=== PATIENT | female | born 1950 | race Caucasian/White ===

== ENCOUNTER → 2017-02-24 | Outpatient (CLI) | payer BC | LOC: MC.RAD 15:40 | DX: Z12.31 Encounter for screening mammogram for malignant neoplasm of breast (principal) ==

== ENCOUNTER → 2018-05-26 | Outpatient (CLI) | payer BC | LOC: MC.RAD 08:29 | DX: Z12.31 Encounter for screening mammogram for malignant neoplasm of breast (principal) ==

== ENCOUNTER → 2019-07-25 | Outpatient (CLI) | payer BC | LOC: MC.RAD 16:52 | DX: Z12.31 Encounter for screening mammogram for malignant neoplasm of breast (principal) ==

== ENCOUNTER 2023-01-18 14:45 | Observation (INO) | payer MEDICARE, OTHER ==
[~2023-01-18] VITALS: Ht 160 cm; Wt 45.2 kg
[~2023-01-18 14:45] MED LIST: DITROPAN XL 5MG5 M1 PO; DOXYCYCLINE 10100 MG PO; SYNTHROID0.075 MG/T PO
[2023-01-18 15:31] LABS: BASO % 0.4 % (0.0-2.0); EOS # 0.1 K/mm3 (0.0-0.7); EOS % 1.8 % (0.0-4.0); GRAN # 4.1 K/mm3 (1.4-6.5); GRAN % 73.1 % (42.2-75.2); HEMATOCRIT 39.4 % (37.0-47.0); HEMOGLOBIN 12.7 g/dl (12.5-16.0); LYMPH # 0.9 K/mm3 (1.2-3.4); LYMPH % 16.3 % (20.0-51.0); MEAN CELL VOLUME 92 fl (80.0-100.0); MEAN CORPUSCULAR HEMOGLOBIN 30 pg (27-31); MEAN CORPUSCULAR HGB CONC 32 g/dl (33.0-37.0); MEAN PLATELET VOLUME 11.2 fl (7.4-10.4); MONO # 0.5 K/mm3 (0.1-0.6); MONO % 8.2 % (1.7-9.3); PLATELET COUNT 215 K/mm3 (130-400); REDCELL DISTRIBUTION WIDTH-CV 13.1 % (11.5-14.5)
[2023-01-18 15:39] LABS: LACTIC ACID 0.9 mmol/L (0.5-2.0)
[2023-01-18 15:46] LABS: ALBUMIN 4.1 gm/dL (3.4-4.8); BILIRUBIN,TOTAL 0.3 mg/dL (0.2-1.2); CREATININE, serum 1.09 mg/dL (0.57-1.11); POTASSIUM 4.5 mmol/L (3.5-4.5); TOTAL PROTEIN 7.7 gm/dL (6.2-8.1)
[2023-01-18 16:06] LABS: THYROID STIMULATING HORMONE 4.448 uIU/mL (0.350-4.940); TROPONIN-I 0.01 ng/mL (0.00-0.033)
[2023-01-18 16:53] LABS: COLLECTION METHOD CATHETER
[2023-01-18 17:06] LABS: URINE APPEARANCE Clear (CLEAR/HAZY); URINE BLOOD Negative (NEGATIVE); URINE COLOR Yellow (YELLOW); URINE GLUCOSE Negative (NEGATIVE); URINE KETONE Negative (NEGATIVE); URINE NITRATE Negative (NEGATIVE); URINE PROTEIN(semi-quant) Negative (NEGATIVE); URINE UROBILINOGEN 0.2 E.U/dL (0.2-1.0)
[2023-01-18 18:26] LABS: TRICYCLIC ANTIDEPRESS URINE NEGATIVE
--- NOTE | 2023-01-18 19:43 | NUR ---
Patient arrived to the unit at this time with belongins in bag and jewlery put in container with patietn label. Jewlery includes two rings and one set of earings. Patient is alert but very drowsy. Patient is able to say her name but does not say anything when asked her , location, or what year it is. IV in left forearm appears clean, dry, intact and flushes easily with no complications. Patient on tele, sinus nicolasa. Water given. Denies any other needs at this time. Med rec unable to be completed due to patient confusion and reported that family doesn't know what she takes or how much. Patient intake partially completed due to patient confusion and family not present. Assessment complete. Unable to orient patient due to cofusion and very drowsy. Call light and personal items in reach. Bed in low position and bed alarm on. Yellow gown, footwear, and wrist band applied.
[2023-01-18 19:47] VITALS: BP 171/98; PULSE 93; TEMP 98.4
[2023-01-18 21:22] VITALS: BP_SYST 171
[2023-01-18 23:30] VITALS: BP 118/75; PULSE 59; TEMP 97.6
[2023-01-19] VITALS (12 sets, daily range): BP systolic 94–144; BP diastolic 58–82; PULSE 61–85; TEMP 97.5–98.2
[2023-01-19 00:05] LABS: SQUAMOUS EPITHELIAL 0-2 /hpf (0-10); URINE RBC None Seen /hpf (0-2)
--- NOTE | 2023-01-19 03:00 | NUR ---
Patient yelling "Help me! Someone please help me." and trying to get out of bed. Upon entry of room patient states "All these people have to pee. Help them and I'll feel better." when asked if she has to pee, patient declines. Patient is very confused at this time. Hospitalist Branden contacted and recieved new orders recieved, orders read back and verified.
--- NOTE | 2023-01-19 03:25 | NUR ---
Patient yelling for help and attempting to get out of bed. When asking patient what she needs help with she states "Those people standing over there in the corner need to pee. Help them and I will be able to go back to sleep." when asking patient if she is hearing voices she states "sometimes" and when asked if she sees anyone other than this nurse patient states "no". Medication administered and patient reassured there is nobody in her room.
--- NOTE | 2023-01-19 03:30 | NUR ---
Patient is alert and Oriented x3 at this time. Patient is oriented to herself and location, unaware of time.
[2023-01-19 06:44] LABS: HEMOGLOBIN 10.8 g/dl (12.5-16.0); MEAN CELL VOLUME 88 fl (80.0-100.0); MEAN CORPUSCULAR HEMOGLOBIN 30 pg (27-31); MEAN CORPUSCULAR HGB CONC 34 g/dl (33.0-37.0); MEAN PLATELET VOLUME 11.1 fl (7.4-10.4); PLATELET COUNT 164 K/mm3 (130-400); RED BLOOD COUNT 3.65 M/mm3 (4.10-5.30); REDCELL DISTRIBUTION WIDTH-CV 12.8 % (11.5-14.5)
[2023-01-19 07:08] LABS: CHOLESTEROL RISK RATIO 4.6
--- NOTE | 2023-01-19 09:07 | NUR ---
Pt is resting in bed, awake but with eyes closed. Alert and oriented to self and place. Getting LR per orders, asked for tylenol for headache, provided, Telemetry in place, SR. Assessment completed, meds provided, no further needs at this time. Call light within reach.
[2023-01-19] MEDS ORDERED: ARICEPT 5MG PO (09:37)
[2023-01-19] MEDS ORDERED: K-DUR 10 MEQ T10 MEQ PO (09:38)
[2023-01-19] MEDS ORDERED: LASIX 20MG TABL20 MG PO (09:38)
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
--- NOTE | 2023-01-19 18:55 | NUR ---
in bed pulling off telemetry leads, DIRECTOR OF CREATIVE SERVICES in and assisting her, bedside shift report received from TALON Childress
--- NOTE | 2023-01-19 19:30 | NUR ---
resting in bed wanting to get up to go to work, attempted to reorient, is oriented to self but nothing else, full assessment completed, see interventions for further info, medicated with tylenol 650mg po for general discomfort, lights out and encouraged her to sleep
--- NOTE | 2023-01-19 21:00 | NUR ---
appears to be sleeping, in bed with lights off, eyes closed, yang quiet and easy
--- NOTE | 2023-01-19 21:50 | NUR ---
talking about water on the floor, reoriented her and encouraged her to go back to sleep, she is in agreement with this
--- NOTE | 2023-01-19 22:13 | NUR ---
moving about in bed, had been incontinent of urine and care provided, encouraged to sleep
--- NOTE | 2023-01-19 23:07 | NUR ---
attempting to get out of bed, entered room and patient stated she needed to go to the bathroom, assisted out of bed and she ambulated to the bathroom and voided qs, then back to bed and she was encouraged to sleep
[2023-01-20] VITALS (8 sets, daily range): BP systolic 121–167; BP diastolic 70–93; PULSE 67–92; TEMP 97.7–98.1
--- NOTE | 2023-01-20 00:51 | NUR ---
at this time she appears to be sleeping, in bed with eyes closed, resp quiet and easy
--- NOTE | 2023-01-20 01:00 | NUR ---
again asking to get up and go to bathroom, was able to void qs and also had BM, then assisted back to bed
--- NOTE | 2023-01-20 01:35 | NUR ---
is now asking for a cinammon roll, explained to her we didn't have any and she asked for just something sweet to eat, provided matt guzman and she was pleased with that
--- NOTE | 2023-01-20 01:42 | NUR ---
and she is now having ice cream per her request
--- NOTE | 2023-01-20 02:25 | NUR ---
appears to be sleeping now after having had ice cream
--- NOTE | 2023-01-20 05:44 | NUR ---
assisted up to bathroom and voids qs, has slept off and on during the night and remains confused to time and place
--- NOTE | 2023-01-20 06:57 | NUR ---
bedside shift report given to TALON Galvin
--- NOTE | 2023-01-20 07:50 | NUR ---
pt alert and oriented, w occasional confusion. pt resting in bed, assisted to recliner for breakfast. pt denies pain. vss and tele in place. meds given and assessment complete. left wrist INT is patent. fall precautions in place. no needs at this time. call light in reach.
--- NOTE | 2023-01-20 16:30 | NUR ---
INT discontinued. discharge instructions given to pt and family. phone numbers for medicaid and anabela SW given to family. escorted by wheelchair to personal vehicle.
--- NOTE | 2023-01-20 16:36 | NUR ---
Anesthesiology Resident spoke with Hospitalist who advised patient is ready for discharge today and wants to return home. Patient was unsure about Home Health services. GASTON contacted AMARJIT George Anesthesiology Resident who advised she has had an open case for patient. Cassidy reported that patient's family has been resistant to placement and have not completed a Medicaid application. GASTON made additional report to APS, intake #[id number]. GASTON contacted Zack Financial Counselor who plans to be in contact with family to complete Medicaid application. GASTON contacted patient's , Carlos by phone to discuss discharge. SW advised that patient was medically cleared for discharge and that she would not qualify for SNF at this time. SW stressed the importance of completing a Medicaid application in order to begin the process of getting patient into LTC or memory care. Carlos verbalized understanding. GASTON discussed Home Health services with Carlos who is agreeable to this. GASTON reviewed options for HH and Carlos selected [facility]. GASTON contacted Julian at [facility] and faxed referral with discharge orders. Julian advised they will accept at this time. GASTON contacted patient's son, Ra to review the above update. GASTON again stressed the importance of follow up with the Medicaid application as the payer source for LTC. Ra verbalized understanding and stated he could quill picking machine operator patient around 1700. Around 1600, patient's Carlos and other son, Ilya arrived to quill picking machine operator patient. Carlos stated patient was not ready to return back home and they cannot care for her. GASTON attempted to discuss Dr. Sultana's recommendation for LTC, but Carlos denied any knowledge of this. Carlos stated he has never had any contact with Dr. Sultana's office. GASTON attempted to discuss patient's level of functioning before hospitalization and Carlos avoided answering this question. GASTON asked Carlos how they managed at home prior to hospitalization and he stated patient was "much better" than she is now. Carlos stated it's "bullshit" that she is being discharged. GASTON had Hospitalist come speak with Carlos and he again was not receptive to answers being provided. Carlos requested Hospitalist leave room and on the way out, Carlos stated to Hospitalist he would "kick his ass". SW also left room at this point. Discharge Plan: Home with HH
== END 2023-01-20 16:30 | disposition home or self-care (01) ==
LOC: COL.ER 14:45 → EDBD 14:46 → MEDICAL 18:37 → EDBEDREQ 19:18 → MEDICAL 01-20 16:30
PROVIDERS: Emergency Medicine; Physician Assistant; ADMIT Hospitalist
DX: R41.82 Altered mental status, unspecified (principal); E86.0 Dehydration; R41.0 Disorientation, unspecified; E03.9 Hypothyroidism, unspecified; Z79.890 Hormone replacement therapy; F03.90 Unspecified dementia, unspecified severity, without behavioral disturbance, psychotic disturbance, mood disturbance, and anxiety; Z79.899 Other long term (current) drug therapy
CPT/HCPCS: G0378; J1650; J7120

== ENCOUNTER 2023-01-27 02:58 | Inpatient (IN) | payer MEDICARE, OTHER ==
[2023-01-27] VITALS (8 sets, daily range): BP systolic 107–173; BP diastolic 68–102; PULSE 68–85; TEMP 97.3–97.8
[~2023-01-27] VITALS: Ht 162.6 cm; Wt 66.2 kg
[~2023-01-27 02:58] MED LIST changes: +ARICEPT 5MG PO; +K-DUR 10 MEQ T10 MEQ PO; +LASIX 20MG TABL20 MG PO
[2023-01-27 04:05] LABS: BASO % 0.6 % (0.0-2.0); EOS # 0.3 K/mm3 (0.0-0.7); EOS % 3.7 % (0.0-4.0); GRAN # 5.2 K/mm3 (1.4-6.5); GRAN % 73.5 % (42.2-75.2); LYMPH # 0.9 K/mm3 (1.2-3.4); LYMPH % 13.1 % (20.0-51.0); MEAN CELL VOLUME 97 fl (80.0-100.0); MEAN CORPUSCULAR HEMOGLOBIN 29 pg (27-31); MEAN CORPUSCULAR HGB CONC 30 g/dl (33.0-37.0); MEAN PLATELET VOLUME 11.3 fl (7.4-10.4); MONO # 0.6 K/mm3 (0.1-0.6); MONO % 8.7 % (1.7-9.3); PLATELET COUNT 201 K/mm3 (130-400); RED BLOOD COUNT 3.77 M/mm3 (4.10-5.30); REDCELL DISTRIBUTION WIDTH-CV 13.6 % (11.5-14.5)
[2023-01-27 04:14] LABS: HEMATOCRIT 36.5 % (37.0-47.0)
[2023-01-27 04:25] LABS: ALANINE AMINOTRANSFERASE 45 U/L (0-55); ALBUMIN 3.6 gm/dL (3.4-4.8); ALKALINE PHOSPHATASE 82 U/L (40-150); ANION GAP 10 mmol/L (7-16); AST,SGOT 41 U/L (5-34); BILIRUBIN,TOTAL 0.2 mg/dL (0.2-1.2); BLOOD UREA NITROGEN 26 mg/dL (10-20); C-REACTIVE PROTEIN 0.15 mg/dL (0.00-0.50); CALCIUM 9.3 mg/dL (8.4-10.2); CARBON DIOXIDE 27 mmol/L (23-31); CHLORIDE 105 mmol/L (98-107); CREATININE, serum 0.92 mg/dL (0.57-1.11); GLUCOSE 111 mg/dL (70-99); MAGNESIUM 2.1 mg/dL (1.6-2.6); POTASSIUM 4.5 mmol/L (3.5-4.5); SODIUM 142 mmol/L (136-145); TOTAL PROTEIN 7.4 gm/dL (6.2-8.1)
[2023-01-27 04:46] LABS: THYROID STIMULATING HORMONE 5.009 uIU/mL (0.350-4.940)
[2023-01-27 04:49] LABS: TROPONIN-I < 0.010 ng/mL (0.00-0.033)
[2023-01-27 07:40] LABS: COLLECTION METHOD CLEAN CATCH
[2023-01-27 07:57] LABS: URINE APPEARANCE Clear (CLEAR/HAZY); URINE BLOOD Negative (NEGATIVE); URINE COLOR Yellow (YELLOW); URINE GLUCOSE Negative (NEGATIVE); URINE KETONE Negative (NEGATIVE); URINE NITRATE Negative (NEGATIVE); URINE PROTEIN(semi-quant) Negative (NEGATIVE); URINE UROBILINOGEN 0.2 E.U/dL (0.2-1.0)
[2023-01-27 08:00] LABS: SQUAMOUS EPITHELIAL 0-2 /hpf (0-10); URINE RBC None Seen /hpf (0-2)
[2023-01-27] MEDS ORDERED: K-DUR 10 MEQ T10 MEQ PO (09:05)
[2023-01-27] MEDS ORDERED: LASIX 20MG TABL20 MG PO (09:06)
--- NOTE | 2023-01-27 13:30 | NUR ---
Patient arrived to room 354 at approximately 0830 with diagnosis of BLE edema. Pt able to answer all orientation questions appropriately. Right beltran with large discolored and reddened area that is weeping. Aquacel dressing placed on area. Top of left foot reddened. +2 BLE edema noted. PACO Hose applied bilaterally. Pt reports pain when any type of pressure is applied to her legs, otherwise denies pain. Generalized skin flaking and scaliness noted. Pt ambulated in hallway with therapy this morning and sat up to side of bed to eat lunch. Blood pressure initally elevated but decreased after administration on IV lasix.
--- NOTE | 2023-01-27 15:54 | NUR ---
Pump Service Supervisor met with Patient at bedside to conduct Care Managment Assessment and discuss discharge planning. Patient was readmitted to AV after discharging last week. Patient states that she had leg swelling at home. V[facility] is agreeable to SNF and is INPT at this time. GASTON provided Medicare.gov list of SNF servicing providers. Patient is agreeable to referrals being sent to [facility], [facility], and [facility], wanting to stay in [place] while she reviews list. GASTON Langston assisted with sending referrals to the stated facilities.
--- NOTE | 2023-01-27 20:00 | NUR ---
Pt alert and oriented x4 throughout shift. However conversation at times inappropriate. Pt had a couple visitors and her visited as well. had requested to speak to nurse but had left before nurse could speak to him. All visitors only stayed for short amount of time. Showered patient and replaced edith hose bilaterally. Very pleasant and cooperative.
[2023-01-28] VITALS (13 sets, daily range): BP systolic 89–122; BP diastolic 59–73; PULSE 62–78; TEMP 97.4–98.1
--- NOTE | 2023-01-28 01:09 | NUR ---
UPON SHIFT ASSESSMENT DEDE WAS AWAKE IN BED AND AXO x 2. SHE WAS ORIENTED TO PLACE AND SELF, HOWEVER, CONVERSATIONS WERE A STREAM OF CONSCIOUSNESS, AND IRRELEVANT. HER BLLE WERE EDEMAOUS +2 WITH SOME SCALIMG AND DRIED BLISTERS. SHE DENIES CHEST PAIN AND SOA AT THIS TIME. VSS ARE WNL TELE IS NS. BED ALARM ON AND CALL LIGHT WITHIN REACH.
--- NOTE | 2023-01-28 07:30 | NUR ---
THROUGHOUT THE NIGHT, DEDE WAS UP AND RESTLESS. SHE WAS AXO X 2 AND CONTINUED TO HAVE AMS R/T HER DEMENTIA. EFFORTS TO REORIENT AND PROVIDE ADDITIONAL NUTRITION TOOK PLACE FREQUENTLY. HER BLLE STILL EXHIBIT WEEPY EDEMA. SHE DENIES CHEST PAIN, BUT IS UNABLE TO ANSWER QUESTIONS ABOUT SOA-LUNG SOUNDS CLEAR. VSS WNL. TELE NS. MEPOPLEX PLACED ON BONY PROMINENCE AROUND T-5. BED ALARM ON.
--- NOTE | 2023-01-28 09:41 | NUR ---
Assessment completed. Pt sitting up in bed eating breakfast while Speech Therapy evaluating at bedside. Pt only oriented to name and only. Denies pain unless pressure applied to BLE. Doni hose in place. Fall precautions in place.
--- NOTE | 2023-01-28 13:29 | NUR ---
winery worker called Sudhir at [facility] who informed SW they can clinically meet pt's needs. SW called [facility] and was informed they are still reviewing. [facility] has not space at this time. GASTON met with patient and informed her that so far [facility] is the only 'yes.' She was open to this placement, but really wanted [facility]. SW informed her they are full and if she wants to send to other facilities SW can do so. Pt said she would like to discuss this with her family. GASTON provided her number to pt. GASTON attempted to call son, Ra and could not leave a voicemail. GASTON left a voicemail to , Carlos. In the morning, GASTON recieved a call from [facility] and spoke with Residential Builder Nicole. She informed SW they are following her care and would like social service updates. Nicole said they made 3-4 APS reports regarding pt. Nicole states the daughter in law reported pt did not have a bath in a month. GASTON informed her of the plan for SNF at this time and pt is needing midnights still at this time. She informed Nicole that APS stopped by yesterday. GASTON made an APS report online. Discharge Plan: SNF
--- NOTE | 2023-01-28 15:51 | NUR ---
recording studio set up worker emailed updates to Sudhir at [facility]. recording studio set up worker called son, Ra and discussed with him the plan of care. Ra was agreeable to the plan for SNF. He stated that he cannot provide the care for her that she needs, and he feels as though his father cannot either. He says they live in the same home, but he is in the basement portion and works. He said that he does not have a good relationship with his father and they are civil. He does not know if they can agree on cares regarding Brielle if needed. He was unaware of a DPOA-HC for pt. He thinks patient could benefit from long-term care at a facility. Ra said he will be by today for dinner to provide support to his mother and his spouse was in yesterday. SW called Carlos, to inform him of the plan of care for Brielle. Carlos was not resistant and agreeable to SNF. SW informed him that [facility] has accepted, but pt was looking into other options. Carlos feels as though he can provide further care for her at home when SW discussed LTC as an option. He says that he is overwhelmed with the house right now as it is "...messy and unlike her. Quite the opposite usually, she is very clean." He informed SW that he spoke with AMARJIT Brand yesterday and provided information. Carlos says he has been attempting to contact pt and she has not answered and was not in the mood to talk yesterday. GASTON asked if he would visit in person, he stated he will come in tonight. Carlos expressed when he came by yesterday he could not find a nurse to talk with him. GASTON advised there are always nurses around and to ask the people at the desk for assistance. Carlos was agreeable to this and informed pt could discharge Thursday if medically ready. Discharge Plan: SNF
--- NOTE | 2023-01-28 18:50 | NUR ---
resting in bed finishing supper, bedside shift report recieved from TALON Rodriguez
--- NOTE | 2023-01-28 19:17 | NUR ---
Pt up in w/c at nurses desk this afternoon. Pt became increasingly agitated as day progressed. Son and came to visit but patient sleeping. Pt woke up shortly after they left and began asking about speaking to her . Pt had periods of confusion and inappropriate converstation throughout the day. Valium order rec'd and administered this evening and patient now pleasant and cooperative. Bedside report given to Carlie Boyce RN.
--- NOTE | 2023-01-28 19:42 | NUR ---
appears to be sleeping, in bed with eyes closed, resp quiet and easy
--- NOTE | 2023-01-28 21:05 | NUR ---
BP recheck is 97/66
--- NOTE | 2023-01-28 21:15 | NUR ---
awake and states she is having going to sleep, full assessment completed, see interventions for further info, given HS meds, provided ice cream per her request
--- NOTE | 2023-01-28 22:38 | NUR ---
appears to be sleeping, in bed with eyes closed, resp quiet and easy
--- NOTE | 2023-01-28 23:35 | NUR ---
bed alarm sounding, ambulated into bathroom and voids qs, then assisted back to bed
[2023-01-29] VITALS (10 sets, daily range): BP systolic 111–142; BP diastolic 72–85; PULSE 69–76; TEMP 97.4–98.6
--- NOTE | 2023-01-29 01:30 | NUR ---
appears to sleep at intervals, assist up to bathroom as needed
--- NOTE | 2023-01-29 03:30 | NUR ---
appears to be sleeping, resp quiet and easy
--- NOTE | 2023-01-29 06:18 | NUR ---
has been up to bathroom seveal times, gets up without calling and bed alarm is on
--- NOTE | 2023-01-29 07:12 | NUR ---
bedside shift report given to Venita Roberson RN
--- NOTE | 2023-01-29 10:16 | NUR ---
SW Student faxed clinical updates to [facility].
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
[2023-01-29 13:35] LABS: BASO % 0.2 % (0.0-2.0); EOS # 0.2 K/mm3 (0.0-0.7); EOS % 1.8 % (0.0-4.0); GRAN # 6.8 K/mm3 (1.4-6.5); GRAN % 80.7 % (42.2-75.2); HEMATOCRIT 37.5 % (37.0-47.0); LYMPH # 0.9 K/mm3 (1.2-3.4); MEAN CORPUSCULAR HGB CONC 35 g/dl (33.0-37.0); MEAN PLATELET VOLUME 11.5 fl (7.4-10.4); MONO # 0.6 K/mm3 (0.1-0.6); MONO % 7.2 % (1.7-9.3); PLATELET COUNT 223 K/mm3 (130-400); RED BLOOD COUNT 4.21 M/mm3 (4.10-5.30); REDCELL DISTRIBUTION WIDTH-CV 13.2 % (11.5-14.5)
[2023-01-29 13:36] LABS: MEAN CELL VOLUME 89 fl (80.0-100.0); MEAN CORPUSCULAR HEMOGLOBIN 31 pg (27-31)
--- NOTE | 2023-01-29 13:39 | NUR ---
feed in worker met with Brielle to see how she was doing and if her family stopped by. Pt could not recall if her family stopped by last night. SW informed her that [facility] accepted and was interested in her to go tomorrow. Pt was agreeable to this. GASTON informed her [facility] was still reviewing and [facility] was still full to refresh her mind. Discharge Plan: [facility]
[2023-01-29 13:57] LABS: CALCIUM 9.6 mg/dL (8.4-10.2); CREATININE, serum 1.13 mg/dL (0.57-1.11); MAGNESIUM 2.3 mg/dL (1.6-2.6); POTASSIUM 4.2 mmol/L (3.5-4.5)
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
--- NOTE | 2023-01-29 19:00 | NUR ---
PT IS HIGH FALL RISK- CONFUSED. PT GETTING IMPULSIVE. GETTING OUT OF BED FREQ W/O ASSIST. ASSISTING PT TO BR AND BACK TO BED OR ON A WALK. BACK TO BED- BED ALARM SET. CALL LIGHT IN REACH.
--- NOTE | 2023-01-29 19:30 | NUR ---
TELESITTER IN PLACE.
--- NOTE | 2023-01-29 21:30 | NUR ---
PT CALMED DOWN NOW. DOZING. NO DISTRESS.
[2023-01-30] VITALS (12 sets, daily range): BP systolic 98–127; BP diastolic 65–78; PULSE 53–93; TEMP 97.1–98.1
--- NOTE | 2023-01-30 00:03 | NUR ---
PT GIVEN ZYPREXA 5MG IM. PT CONFUSED. BED ALARM SOUNDING FREQUENTLY. HAS NOT RESTED WELL TONIGHT.
--- NOTE | 2023-01-30 06:29 | NUR ---
PT STILL DROWSY. CALL LIGHT IN REACH.
--- NOTE | 2023-01-30 07:57 | NUR ---
PATIENT DROWSY THIS MORNING. PATIENT ALERT TO SELF ONLY. PATIENT ASSISTED TO BATHROOM AND BACK TO BED. PATIENT DENIES PAIN AT THIS TIME. PATIENT REMAINS DROWSY. IV FLUSHED WELL. PATIENT ON ROOM AIR, HAS A MEPLEX DRESSING TO HER BACK AND HER RIGHT MID LOWER LEG. CALL LIGHT WITHIN REACH, BED ALARM ON AND AT LOWEST POSTIION.
--- NOTE | 2023-01-30 08:56 | NUR ---
SW Student faxed clinical updates to [facility].
--- NOTE | 2023-01-30 11:27 | NUR ---
[facility] with [facility] states [facility] cannot accept patient for care.
--- NOTE | 2023-01-30 14:08 | NUR ---
harvest worker discussed with Director Cecily Cordero discharge planning for pt moving forward as she cannot go to [facility]. GASTON was informed Dr. Jasmine will need to order a capacity screen by Dr. Christensen to discuss capacity and possible need for guardianship. GASTON informed Dr. Jasmine of the need for capacity eval. SW spoke with [facility] who re-reviewed the referral and said that they decline at this time due. SW informed Cecily Cordero. GASTON spoke with TALON Aguilar who said pt would like to discuss. SW informed pt that she will not be going to [facility] today. She informed her that a telehealth Dr. will speak with her and ask some psychology questions to determine next steps. Pt was agreeable to this. GASTON explained that it can occur either today or tomorrow. Pt expressed she has a cat at home she misses and wanted to get her items. SW advised she cannot do that at this time until she talks with the Dr. GASTON asked if pt knew anything of a Medicaid application being completed for her. Pt did not have any knowledge of this and did not know what it was. GASTON briefly explained it is state insurance for patient's who might need financial assistance and help with long-term needs. Discharge Plan: Consult with Dr. Christensen
[2023-01-31] VITALS (12 sets, daily range): BP systolic 104–127; BP diastolic 65–76; PULSE 65–80; TEMP 97.4–98.7
[2023-01-31 07:05] LABS: BASO % 0.4 % (0.0-2.0); EOS # 0.3 K/mm3 (0.0-0.7); EOS % 4.6 % (0.0-4.0); GRAN # 3.4 K/mm3 (1.4-6.5); GRAN % 62.5 % (42.2-75.2); HEMOGLOBIN 11.7 g/dl (12.5-16.0); LYMPH # 1.1 K/mm3 (1.2-3.4); LYMPH % 20.7 % (20.0-51.0); MEAN CELL VOLUME 91 fl (80.0-100.0); MEAN CORPUSCULAR HEMOGLOBIN 30 pg (27-31); MEAN CORPUSCULAR HGB CONC 33 g/dl (33.0-37.0); MEAN PLATELET VOLUME 11.1 fl (7.4-10.4); MONO # 0.6 K/mm3 (0.1-0.6); MONO % 11.6 % (1.7-9.3); PLATELET COUNT 214 K/mm3 (130-400); REDCELL DISTRIBUTION WIDTH-CV 13.5 % (11.5-14.5)
[2023-01-31 07:09] LABS: HEMATOCRIT 35.4 % (37.0-47.0)
[2023-01-31 07:32] LABS: CREATININE, serum 0.87 mg/dL (0.57-1.11); POTASSIUM 3.7 mmol/L (3.5-4.5)
--- NOTE | 2023-01-31 07:32 | NUR ---
THE PATIENT RESTED WELL OVERNIGHT. NO S/S OF ACUTE DISTRESS NOTED. THE PATIENT WAS FORGETFUL AT TIMES AND DID SET THE BED ALARM OFF A FEW TIMES. THE PATIENT WAS EASILY REDIRECTABLE. CURRENTLY THE PATIENT IS IN BED WITH THE BED ALARM ON AND THE BED IN THE LOW POSITION. THE CALL LIGHT IS WITHIN REACH.
--- NOTE | 2023-01-31 08:03 | NUR ---
SHIFT ASSESSMENT COMPLETED. PATIENT ALERT TO PLACE AND NAME NOT BIRTHDATE. PATIENT WAS HELPED TO BATHROOM AND BACK TO BED. REPOSITIONED HIGHER ON BED AND PATIENT REPORTED FEELING LIKE SHE WAS GOING TO" FREAK OUT" AND NURSE TRIED TO HELP HER REPOSITION BACK TO THE SPECIFIC WAY HER BUTTOCKS WAS ON THE BED. PATIENT LEFT IN BED IN THE POSITION SHE CONSIDERED CONFORTABLE CLOSE TO HOW SHE WAS PREVIOUSLY POSITIONED. PATIETN BED ALATM ON. CALL LIGHT WITHIN REACH.
--- NOTE | 2023-01-31 16:25 | NUR ---
PATIENT HAS BEEN DISORIENTED MOST OF TODAY.PATIENT BELIEVES AT TIMES SHES AT [facility] OTHER TIMES THAT SHE IS GING SOMEWHERE BECAUSE SHE DOESN'T WANT THEM TO LEAVE WITHOUT HER. PATIENT DAUGHTER IN LAW AND GRANDDAUGHTER VISITED WITH HER. PATIENT HAS REMAINED CALM MOST OF DAY JUST A FEW EPISODES OF ANXIETY BUT IS ABLE TO CALM DOWN AFTER TALKING TO HER.
[2023-02-01] VITALS (13 sets, daily range): BP systolic 110–144; BP diastolic 67–93; PULSE 57–92; TEMP 97.4–97.8
--- NOTE | 2023-02-01 07:14 | NUR ---
THE PATIENT WAS AWAKE MOST OF THE NIGHT. THE PATIENT FREQUENTLY SET THE BED ALARM OFF TRYING TO GET UP FOR VARIOUS REASONS WHILE CONFUSED. THE PATIENT REDIRECTED EASILY AND WAS PLEASANT. NO S/S OF DISTRESS NOTED. BED ALARM ON, CALL LIGHT WITHIN REACH.
--- NOTE | 2023-02-01 11:03 | NUR ---
PATIENT ALERT THIS MORNING UPON SHIFT ASSESSMENT. PATIENT IS ORIENTED TO PERSON THIS MORNING BUT STILL REMAINS DISORIENTED TO PLACE AND DATE. PATIENT HELPED TO CHAIR AFTER BREAKFAST TO SIT UP RIGHT FOR A FEW MINUTES. THEN LATER MOVED TO A BETTER OBSERVATION ROOM.PATIENT NOW SLEEPING IN ROOM. CALL LIGHT WITHIN REACH. BED AT LOWEST POSITION AND ALARM ON.
--- NOTE | 2023-02-01 18:55 | NUR ---
PATIENT ASSISTED INTO BATHROOM AND BACK TO BED. PATIENT GAIT STEADY WITH STAND BY ASSIST OF PRIMARY NURSE. PATIENT ASSISTED TO REPOSITION IN BED FOR COMFORT. PATIENT TOLERATED WELL. ASSESSMENT COMPLETED. MANOJ SITTER IN PLACE. ALL NEEDS MET. BED IN LOW POSITION WITH WHEELS LOCKED WITH RAILS UP X3 AND CALL LIGHT WIHTIN REACH. BED ALARM ON.
--- NOTE | 2023-02-01 21:40 | NUR ---
PATIENT RESTING IN BED WITH TV ON WITH NO ACUTE DISTRESS NOTED. PATIENT ON ROOM AIR. MANOJ SITTER IN PLACE. MEDICATION ADMINISTRATION COMPLETED AT THIS TIME. PATIENT TOLERATED WELL. DRESSING TO RIGHT LOWER INNER CALF CHANGED. PATIENT TOLERATED WELL. NEW IV STARTED TO LEFT WRIST. PATIENT TOLERATED WELL. IV TO RIGHT AC REMOVED WITH CATHETER INTACT AND PRESSURE DRESSING APPLIED. PATIENT DENIES ANY OTHER NEEDS AT THIS TIME. BED IN LOW POSITION WITH WHEELS LOCKED WITH RAILS UP X3 AND CALL LIGHT WITHIN REACH. BED ALARM ON.
[2023-02-02] VITALS (11 sets, daily range): BP systolic 118–156; BP diastolic 73–91; PULSE 62–81; TEMP 97.5–98
--- NOTE | 2023-02-02 05:48 | NUR ---
PATIENT SLEPT FOR APPROXIMATELY 4 HOURS DURING THE NIGHT BUT REMAINED AWAKE MOST OF THE NIGHT. PATIENT REFUSED PRN MEDICATION FOR SLEEP. PATIENT ATE SANDWICH TRAY AT 0200 AND DRANK 1/2 OF A ENSURE WITH VANILLA ICE CREAM MIXED IN. PATIETN WAS UNABLE TO BE RE DIRECTED AT 0300. PATIENT STATES "YOU LIE, I CAN NOT BELIEVE YOU. I JUST DON'T UNDERSTAND." PATIENT SAT UP IN RECLINER AND BENCH SEAT FOR MOST OF THE NIGHT. PATIENT CURRENTLY IN BED WITH EYES CLOSED IN THE APPEARANCE OF SLEEP. ALL NEEDS MET. BED IN LOW POSITION IH WHEELS LOCKED WITH RAILS UP X3 AND CALL LIGHT WITHIN REACH. BED ALARM ON.
--- NOTE | 2023-02-02 07:51 | NUR ---
Patient just wake up, alert to self. Trying to get out of bed and "going to work". Continue monitoring with telesitter and in front of nursing station.
--- NOTE | 2023-02-02 11:36 | NUR ---
Patient constantly getting out of bed, this time she is asking for her cat.
--- NOTE | 2023-02-02 14:59 | NUR ---
Patient was screened and found to not have capacity to make her own medical decisions. Due to history of spouse not cooperating with securing medicaid application for group home care by this hospital and patient's physician's office, we feel that patient will need an employment attorney for temporary guadian and conservator to secure medicaid application for ad terminal makeup operator care placement. Worker collaborated with AMARJIT Molina and she confirmed that son, Ra, could be considered if there was conditional language that patient could not be removed from group home care. Worker sent paperwork initiating need for guardian and conservatorship to Abdifatah Temple's team. Worker spoke with Abdifatah Temple and Dr Tyrell Dubose to coordinate plans. Discharge plan: Temporary guardianship/conservatorship for ad terminal makeup operator care placement.
--- NOTE | 2023-02-02 15:24 | NUR ---
mill worker completed guardianship/conservator documents due to pt's lack of capacity. SW provided the evaluation to Dr. Tyrell Dubose to complete. Documents all given to Director Cecily Cordero.
--- NOTE | 2023-02-02 16:12 | NUR ---
Technology Manager faxed referrals to Krista [facility] [place], [facility], [facility], [facility]y Melendez, [facility], T[facility], [facility], and Mari.
--- NOTE | 2023-02-02 20:00 | NUR ---
UPON SHIFT ASSESSMENT, DEDE WAS RESTING IN BED. SHE REMAINS ALERT TO SELF ONLY. BLLE SHOW NO SIGNS OF PREVIOUS EDEMA AND LUNG SOUNDS ARE CLEAR. VSS ARE WNL. DEDE CONTINUES TO ENGAGE IN BIZARRE/NONSENSICAL CONVERSATIONS.
[2023-02-03] VITALS (10 sets, daily range): BP systolic 102–161; BP diastolic 76–96; PULSE 68–84; TEMP 97.3–98.3
--- NOTE | 2023-02-03 02:08 | NUR ---
DEDE ALLOWED THIS NURSE TO TAKE HER VSS AFTER REFUSING 0000 VITALS. HER VITAL SIGNS ARE FOLLOWS- BP- 129/78, PULSE-63, TEMP. 97.7 AND O2 ON RA-99%. SHE C/O OF BILATERAL HIP PAIN AND WAS ACCEPTING OF TAKING TYLENOL, HOWEVER, SPIT MEDS OUT, STATING, "I DON'T NEED IT."
--- NOTE | 2023-02-03 03:49 | NUR ---
DEDE WAS RESTLESS FOR A BRIEF MOMENT AND WAS EXITING BED. SNACK PROVIDED (CHOCOLATE PUDDING). 100% EATEN AND DEDE RETURNED TO BED AND IS RESTING PEACEFULLY.
[2023-02-03 06:46] LABS: BASO % 0.7 % (0.0-2.0); EOS # 0.3 K/mm3 (0.0-0.7); EOS % 4.6 % (0.0-4.0); GRAN # 3.8 K/mm3 (1.4-6.5); GRAN % 67.8 % (42.2-75.2); HEMOGLOBIN 11.4 g/dl (12.5-16.0); LYMPH % 17.8 % (20.0-51.0); MEAN CELL VOLUME 90 fl (80.0-100.0); MEAN CORPUSCULAR HEMOGLOBIN 30 pg (27-31); MEAN CORPUSCULAR HGB CONC 33 g/dl (33.0-37.0); MEAN PLATELET VOLUME 11.2 fl (7.4-10.4); MONO # 0.5 K/mm3 (0.1-0.6); MONO % 8.7 % (1.7-9.3); PLATELET COUNT 204 K/mm3 (130-400); RED BLOOD COUNT 3.87 M/mm3 (4.10-5.30); REDCELL DISTRIBUTION WIDTH-CV 13.2 % (11.5-14.5)
[2023-02-03 06:56] LABS: CALCIUM 9.1 mg/dL (8.4-10.2); CREATININE, serum 0.85 mg/dL (0.57-1.11); HEMATOCRIT 34.7 % (37.0-47.0)
--- NOTE | 2023-02-03 07:20 | NUR ---
PT SITTING IN CHAIR UPON ENTERING. ASSESSMENT DONE. PT REFUSED LOVENOX AND IV FLUSH STATING "I DONT NEED THAT". PT RESPONDING TO THIS NURSE WITH EYES CLOSED AND IS HUGGING HER KNEES IN THE CHAIR. PT ORIENTED TO PERSON, PLACE AND PARTIALLY TIME. PT HAS CONFUSED SPEECH THROUGHOUT ASSESSMENT. WHEN ASKED IF IN PAIN PT STATES "YES MY HIPS BUT IM JUST GOING TO PUSH IT OUT". WHEN OFFERED PRN TYLENOL PT ACCEPTS. PILLS OFFERRED ONE AT TIME AND AFTER THE FIRST TYLENOL PT STATES "I DONT NEED MORE". THIS NURSE ATTEMPTED TO EDUCATE PT ON IMPORTANCE OF COMPLETING MEDICATION, PT STILL REFUSES TO TAKE SECOND TYLENOL. BILATERAL LOWER EXTREMITIES DRY WITH SCAB NOTED TO RIGHT BANUELOS. PT REORIENTED TO ROOM AND SITUATION, PT DENIES NEEDS AT THIS TIME. CHAIR ALARM ON, TELESITTER IN PLACE, CALL LIGHT IN REACH.
--- NOTE | 2023-02-03 12:00 | NUR ---
PT SLEEPING IN BED AT THIS TIME. WILL ATTEMPT TO GET VITALS AT NEXT SCHEDULED TIME
--- NOTE | 2023-02-03 15:54 | NUR ---
GASTON faxed additional referrals to [facility], [facility], and [facility]. GASTON heard back potential acceptance's from: Goldy Guerra, Tanesha, Ray Franco, and [facility]. [facility] and [facility] declined. [facility] informed SW they would want a copy of her Medicaid application once one is done. Mari and Goldy had questions regarding discharge dates and guardianship. GASTON advised this is all pending through the courts. Discharge Plan: LTC pending
--- NOTE | 2023-02-03 20:00 | NUR ---
Patient resting in chair. Denies any pain or needs. Assessment complete. IV in left wrist flushes easily with no complications. Call light and personal items in reach. Bed in low position. Chair alarm on.
[2023-02-04] VITALS (11 sets, daily range): BP systolic 128–153; BP diastolic 50–87; PULSE 67–77; TEMP 97.4–98.2
--- NOTE | 2023-02-04 06:15 | NUR ---
Patient resting in bed. Denies any pain or needs. Call light and personal items in reach. Bed in low position and bed alarm on.
--- NOTE | 2023-02-04 11:28 | NUR ---
Applications System Analyst collaborated with Treatment Team during rounding to assess Patient for discharge readiness. Patient is pending Guardianship at this time to support LTC placment.
--- NOTE | 2023-02-04 18:45 | NUR ---
up in recliner eating supper, bedside shift report recieved from TALON Aguilar,
--- NOTE | 2023-02-04 20:00 | NUR ---
resting in bed, is alert and oriented to self, time and place at this time, then asks about medication she is to take, explained to her it is for her memory and she agrees to take, full assessment completed, see interventions for further info, is watching TV, denies pain or needs
--- NOTE | 2023-02-04 21:30 | NUR ---
bed alarm sound and she is getting up out of bed, DIAMOND DIE DRILLER in and ambulated in the steele with her, then back to bed
--- NOTE | 2023-02-04 22:32 | NUR ---
SCDS are frustrating to patient and she will not leave them on
[2023-02-05] VITALS (11 sets, daily range): BP systolic 118–137; BP diastolic 63–82; PULSE 67–90; TEMP 97.1–98
--- NOTE | 2023-02-05 04:52 | NUR ---
has been sleepoing off and on throughout the night, also attempts to get out of bed impulsively and then encouraged to go back to bed which she agrees to, denies pain or needs
--- NOTE | 2023-02-05 07:03 | NUR ---
bedside shift reprot given to TALON Aguilar
--- NOTE | 2023-02-05 13:31 | NUR ---
right of way worker called son, Ra to update him on the facilities that have tenatively accepted his mother. Ra said whichever is in [place] would be the best option. GASTON informed him this is [facility]. She advised they were awaiting a copy of the Medicaid little to determine payor source. Ra was agreeable to this plan. GASTON faxed updates to [facility]. Discharge Plan: Guardianship process at [facility] tenatively
--- NOTE | 2023-02-05 21:55 | NUR ---
Patient resting in bed. Denies any pain or needs at this time. IV in left wrist is kinked and unable to be saved. IV discontinued. Hospitalist MARYSOL Alfonso notifited and confirmed IV not needed. Assessment complete. Call light and personal items in reach. Bed in low position and chair alarm on.
[2023-02-06] VITALS (11 sets, daily range): BP systolic 118–133; BP diastolic 77–81; PULSE 43–81; TEMP 97.7–98.3
--- NOTE | 2023-02-06 05:33 | NUR ---
Patient resting in chair. Snacks and drink provided. Denies any other needs or pain at this time. Call light and personal items in reach. Bed in low position and bed alarm on.
--- NOTE | 2023-02-06 09:30 | NUR ---
PT SITTING ON SIDE OF BED UPON ENTERING EATING BREAKFAST. ASSESSMENT DONE, MEDS GIVEN PER ORDER. PT DENIES PAIN AT THIS TIME. CONFUSED SPEECH NOTED DURING ASSESSMENT WHICH IS BASELINE FOR PT, REORIENTED APPROPRIATELY. PT HAS NO IV, HOSPITALIST AWARE AND NURSING ORDER IN PLACE TO OKAY THIS. PT DENIES NEEDS AT THIS TIME. BED IN LOWEST POSITION, CALL LIGHT IN REACH, BED ALARM ON.
--- NOTE | 2023-02-06 13:43 | NUR ---
jackscrew worker [facility] and had additonal questions. SW answered their questions regarding discharge date, behaviors, and the need to LTC. They informed GASTON that their is still reviewing at this time. GASTON faxed updates to [facility]. Discharge Plan: pending guardianship, [facility] pending acceptance after Medicaid little complete
--- NOTE | 2023-02-06 14:27 | NUR ---
PT SHOWERED AND BED LINEN CHANGED. SITTING IN CHAIR AT THIS TIME. CHAIR ALARM ON, CALL LIGHT IN REACH
--- NOTE | 2023-02-06 16:14 | NUR ---
cellar worker was inform by RN that pt would like street clothes instead of the gown to be more comfortable. SW provided pt with black sweatpants, a purple shirt, and some slippers. Pt appeared to be glad and getting dressed with Aide's assistance.
[2023-02-07] VITALS (12 sets, daily range): BP systolic 109–144; BP diastolic 69–88; PULSE 68–89; TEMP 97.5–98
--- NOTE | 2023-02-07 09:15 | NUR ---
PT SITTING IN CHAIR UPON ENTERING. ASSESSMENT DONE, PT A&OX3. PT HAS CONFUSED SPEECH THROUGHOUT ASSESSMENT. MEDS GIVEN AND PT REFUSED LOVENOX. NIGHT NURSE REPORTED THAT PT DIDNT SLEEP MUCH THROUGHOUT THE NIGHT. BILATERAL LOWER EXTRMITY +2 AND PT HAS A SCAB TO RIGHT BANUELOS. PTS ABDOMEN IS ROUNDED BUT AN IMPROVEMENT FROM YESTERDAY. PT CANNOT RECALL LAST BOWEL MOVEMENT AND PCT GOT A REPORT OF A SMALL HARD BM THROUGHOUT THE NIGHT. HOSPITALIST AWARE AND STATES THAT HE WILL PUT PT ON A "BOWEL REGIMEN". PT DENIES PAIN OR NEEDS AT THIS TIME. TELESITTER IN ROOM, PT IN CHAIR WITH CHAIR ALARM ON AND CALL LIGHT IN REACH
--- NOTE | 2023-02-07 11:00 | NUR ---
MEPILEX TO PTS MID SPINE COVERING BONY PROMINENCE. SKIN INTACT.
--- NOTE | 2023-02-07 17:58 | NUR ---
PT SITTING IN CHAIR EATING DINNER. PT DENIES PAIN OR NEEDS AT THIS TIME. CHAIR ALARM, CALL LIGHT IN REACH, TELESITTER IN ROOM.
--- NOTE | 2023-02-07 18:59 | NUR ---
REPORT GIVEN TO TALON OLSON
--- NOTE | 2023-02-07 20:31 | NUR ---
THE PATIENT IS ALERT, BUT NOT ORIENTED TO TIME OR PLACE. THE PATIENT WAS ASSISTED WITH A BATHROOM TRIP AND VOIDED WITHOUT DIFFICULTY. THEN THE PATIENT WENT FOR A WALK AND TOLERATED THE ACTIVITY WELL. THE PATIENT DID NOT SLEEP LAST NIGHT WITH THE EXCEPTION OF A FEW NAPS IN THE CHAIR. THE PATIENT REFUSED TO GET INTO BED. SEROQUEL GIVEN THIS EVENING WITH THE HOPE THE PATIENT WILL BE ABLE TO GET SOME REST. CURRENTLY THE PATIENT IS IN THE RECLINER WATCHING TV. ALWAYS THE BED OR CHAIR ALARMS ARE ON. PERSONAL BELONGINGS AND CALL LIGHT WITHIN REACH.
[2023-02-08 00:46] VITALS: BP_SYST 130
[2023-02-08 04:06] VITALS: BP 138/82; PULSE 77; TEMP 98.3
[2023-02-08 04:30] VITALS: BP_SYST 138
[2023-02-08 07:32] VITALS: BP 143/87; PULSE 79; TEMP 98.4
--- NOTE | 2023-02-08 17:34 | NUR ---
Assessment completed this morning. Pt has been pleasant and cooperative. Pt was somewhat irritable this morning until staff assisted her in dressing in her regular clothes. Doni hose on bilaterally. Up in chair all day and ambulated in hallway four times today, 1 assist. Fall precautions in place. Telesitter in use.
[2023-02-08 19:44] VITALS: BP 116/72; PULSE 85; TEMP 98.2
[2023-02-08 20:34] VITALS: BP_SYST 116
--- NOTE | 2023-02-08 20:41 | NUR ---
Patient assessed around 1930. Denies having pain and discomfort. Went over medications with patient, and refused to take Seroquel. Denies SOB and dyspnea. LS CTA. HRR. BSAx4. 2+ edema to BLE. Doni hose in place. Patient has no IV access, and physician is ok with this. Patient is awaiting placement. In recliner, chair alarm in place. Voices no questions, need, or concerns at this time. Call light within reach.
--- NOTE | 2023-02-09 05:57 | NUR ---
Patient has been alert and pleasant this shift. Has gotten up a few times to go to the bathroom and went from bed to recliner and back. Able to be redirected to place and situation. Denies having pain and discomfort at this time. In recliner with call light within reach. Chair alarm on.
[2023-02-09 06:58] LABS: BASO % 0.4 % (0.0-2.0); EOS # 0.2 K/mm3 (0.0-0.7); EOS % 4.1 % (0.0-4.0); GRAN # 3.6 K/mm3 (1.4-6.5); GRAN % 65.1 % (42.2-75.2); LYMPH # 1.1 K/mm3 (1.2-3.4); LYMPH % 19.7 % (20.0-51.0); MEAN CELL VOLUME 93 fl (80.0-100.0); MEAN CORPUSCULAR HEMOGLOBIN 30 pg (27-31); MEAN CORPUSCULAR HGB CONC 32 g/dl (33.0-37.0); MEAN PLATELET VOLUME 11.6 fl (7.4-10.4); MONO # 0.6 K/mm3 (0.1-0.6); MONO % 10.2 % (1.7-9.3); PLATELET COUNT 224 K/mm3 (130-400); RED BLOOD COUNT 3.73 M/mm3 (4.10-5.30); REDCELL DISTRIBUTION WIDTH-CV 13.6 % (11.5-14.5)
[2023-02-09 07:00] LABS: HEMATOCRIT 34.7 % (37.0-47.0)
[2023-02-09 07:15] LABS: CREATININE, serum 0.94 mg/dL (0.57-1.11); MAGNESIUM 2.2 mg/dL (1.6-2.6); POTASSIUM 4.1 mmol/L (3.5-4.5)
[2023-02-09 07:22] VITALS: BP 113/67; PULSE 66; TEMP 98.3
--- NOTE | 2023-02-09 08:15 | NUR ---
Assessment completed. Pt a/o x4 today. Conversation appropriate. Pleasant and cooperative with cares. Pt had small soft formed bowel movement. Pt ambulated in hallway with PCT, x1 assist. Denies pain or needs.
[2023-02-09 09:01] VITALS: BP_SYST 113
--- NOTE | 2023-02-09 16:14 | NUR ---
Silo Filler was requested to speak with Patient by Nurse. SW met with Patient at bedside. Patient requests an update on discharge planning. This SW briefed that SW is working for her on LTC placment options and is working with her son to do so. Patient reflects on her wanting to be with her and cat.
--- NOTE | 2023-02-09 19:20 | NUR ---
No change since am assessment. Pt pleasant, cooperative and a/o throughout day. Ambulated in hallway several times today x1 assist. Fall precautions and telesitter in place.
[2023-02-09 19:27] VITALS: BP 138/85; PULSE 77; TEMP 97.7
[2023-02-09 20:25] VITALS: BP_SYST 138
--- NOTE | 2023-02-09 21:23 | NUR ---
Patient assessed around 2024. Alert and oriented, and able to make needs known. Denies having pain and discomfort. Had PCT ambulate with patient in halls. Voices no questions, needs, or concerns at this time. In recliner with call light within reach. Chair alarm on. Telesitter in room. Patient has been using call light for assistance so far this shift.
--- NOTE | 2023-02-10 06:32 | NUR ---
Patient has denied pain and discomfort this shift. Pleasant and cooperative with staff. Voices no questions, needs, or concerns at this time. In recliner with call light within reach. Chair alarm on.
[2023-02-10 08:05] VITALS: BP 123/77; PULSE 89; TEMP 97.3
--- NOTE | 2023-02-10 08:37 | NUR ---
Assessment completed. Pt awake, sitting up in chair upon entry to room. A/O x4. Conversation appropriate. Pt cooperative with cares. Denies pain or needs. Fall precautions and telesitter in place.
[2023-02-10 10:16] VITALS: BP_SYST 123
--- NOTE | 2023-02-10 14:05 | NUR ---
PCT assisted patient with shower this afternoon. Pt tolerated well. Now resting in chair, watching tv. Pt has ambulated in hallway several times today. Denies pain or needs.
--- NOTE | 2023-02-10 17:53 | NUR ---
Patient up in recliner most of the day. Cooperative and pleasant. Denies pain or needs at this time.
--- NOTE | 2023-02-10 19:55 | NUR ---
PATIENT SITTING IN RECLINER WITH TV ON WITH NO ACUTE DISTRESS NOTED. PATIENT ON ROOM AIR. NO IV SITE PER MD ORDER. ASSESSMENT COMPLETED. ALL NEEDS MET. RECLINER LOCKED AND CALL LIGHT WITHIN REACH. CHAIR ALARM ON. TELESITTER.
[2023-02-10 19:59] VITALS: BP 142/80; PULSE 79; TEMP 98.3
[2023-02-10 20:35] VITALS: BP_SYST 142
--- NOTE | 2023-02-10 20:35 | NUR ---
PATIENT RESTING IN RECLINER WITH NO ACUTE DISTRESS NOTED. PATIENT ON ROOM AIRE. MEDICATION ADMINISTRATION COMPLETED AT THIS TIME. PATIENT TOLERATED WELL. PACO HOSE PLACE BACK ON LEGS WITH PATIENT PERMISSION. PATIENT GIVEN POP CORN AND GATORAID FOR NIGHT TIME SNACK. ALL NEEDS MET. RECLINER LOCKED AND CALL LIGHT WITHIN REACH. CHAIR ALARM ON. TELESITTER AT BEDSIDE.
--- NOTE | 2023-02-11 05:45 | NUR ---
NO CHANGE SINCE ASSESSMENT. PATIENT CONTINUES TO BE COMPLIANT. PATIENT TAKEN FOR WALK. PATEINT TOLERATED WELL. PATIENT REQUEST GRAM CRACKERS AND WAS GIVEN. ALL NEEDS MET. PATEINT SITTING IN RECLINER WITH CHAIR ALARM ON. TELESITTER IN PLACE.
[2023-02-11 07:53] VITALS: BP 143/88; PULSE 68; TEMP 97.5
--- NOTE | 2023-02-11 08:22 | NUR ---
Assessment completed. Pt was sitting up in chair during bedside report. Now resting in bed. A/O x4. Reported abdominal cramping which improved after small formed bowel movement. Denies pain otherwise. No IV access. Refused Lovenox. Telesitter and fall precautions in place.
[2023-02-11 09:32] VITALS: BP_SYST 143
--- NOTE | 2023-02-11 11:54 | NUR ---
movie actor attempted to contact Patient's Son Ra with no success. SW left voicemail requesting callback.
--- NOTE | 2023-02-11 13:26 | NUR ---
Patient ambulated in hallway several times today with nursing staff and physical therapy. Conversation more confused today but easily re-directed and fall precautions still in place. Had another small formed bowel movement. Appetite excellent, eating 100% of meals. Denies pain or needs at this time.
--- NOTE | 2023-02-11 15:42 | NUR ---
Wash Test Checker spoke with patient's son, Ra to provide update.
[2023-02-11 19:51] VITALS: BP 118/74; PULSE 73; TEMP 97.9
[2023-02-11 20:30] VITALS: BP_SYST 118
--- NOTE | 2023-02-11 20:30 | NUR ---
Awake, confused, very pleasant, sitting in chair resting on and off, has been getting up out of chair often tonight, chair alarm on, telesitter in room, taking night meds without issues, does only want 1 Colace instead of the 2 ordered-- did offer a snack and did eat a pudding and cookie tonight--
--- NOTE | 2023-02-12 04:41 | NUR ---
No changes- did get 3-4 hours of sleep, now back in chair- alarm on
[2023-02-12 08:00] VITALS: BP_SYST 136
[2023-02-12 09:01] VITALS: BP 136/83; PULSE 70; TEMP 97.7
--- NOTE | 2023-02-12 10:41 | NUR ---
SHIFT ASSESSMENT COMPLETE. PATIENT SITTING IN RECLINER EATING BREAKFAST. MORNING MEDS GIVEN PER ORDER. PATIENT HAS NO REQUEST OR COMPLAINTS AT THIS TIME. CALL LIGHT IN REACH
[2023-02-12 19:35] VITALS: BP 123/72; PULSE 75; TEMP 98
[2023-02-12 20:30] VITALS: BP_SYST 123
--- NOTE | 2023-02-12 20:30 | NUR ---
Initial shift assessment done, alert/confused/slow movements, getting up out of chair frequently- does not use call light- bed alarm on, telsitter .VSS.
--- NOTE | 2023-02-13 04:36 | NUR ---
Maybe slept for 2 hours this shift-- getting up and down from bed to recliner all night- at times 3-4 times an hour,, overall pleasant/cooperative. VSS.
[2023-02-13 07:57] VITALS: BP 122/93; PULSE 72
[2023-02-13 08:00] VITALS: BP_SYST 122
--- NOTE | 2023-02-13 08:30 | NUR ---
shift assessment complete. vss. patient up to chair awaiting breakfast. reporting nurse stated patient did not get much sleep last night and has been up and down all morning. patient currently requesting to go for a walk. Advised patient I take her after report. all morning meds given per orders. call light in reach.
--- NOTE | 2023-02-13 15:07 | NUR ---
Court documents obtained from Abdifatah Temple, claim attorney's office. Patient's son, Ra has been court appointed for Temporary Guardian and Abdifatah Temple is court appointed Conservator. Abdifatah has begun efforts to determine financials for the patient to secure fdc care.
[2023-02-13 19:25] VITALS: BP 119/80; PULSE 74; TEMP 98.2
[2023-02-13 21:00] VITALS: BP_SYST 136
[2023-02-13 22:51] VITALS: BP 136/85; PULSE 76; TEMP 97.4
--- NOTE | 2023-02-14 01:48 | NUR ---
THE PATIENT IS CONFUSED AND DISORIENTED AT TIMES. THE PATIENT DOES NOT KNOW CURRENTLY THAT SHE IS IN THE HOSPITAL. DEDE THINKS SHE IS AT HOME IN HER LIVING ROOM. THE PATIENT AT TIMES RE-DIRECTS WELL BUT OTHER TIMES NOT. THE NURSING SHIFT ASSESSMENT WAS COMPLETED AT THIS TIME. THE PATIENT WAS ASSISTED TO THE BATHROOM WITH SBA OF ONE. THE PATIENT VOIDED WITHOUT DIFFICULTY. BED AND CHAIR ALARMS USED AND ON. THE PATIENT WAS ENCOURAGED TO GO TO BED FOR SLEEP THIS NIGHT SHE HAS NOT BEEN SLEEPING MUCH OVERNIGHT PER NURSING REPORTS. THE PATIENT DENIED PAIN OR DISCOMFORT. BED IN LOW POSITION, PERSONAL BELONGINGS WITHIN REACH, CHAIR ALARM ON THE PATIENT IS CURRENTLY SITTING IN THE RECLINER WATCHING TV.
[2023-02-14 03:25] VITALS: BP 135/81; PULSE 71; TEMP 98.1
[2023-02-14 08:15] VITALS: BP 137/81; PULSE 84; TEMP 98.1
[2023-02-14 09:00] VITALS: BP_SYST 137
--- NOTE | 2023-02-14 09:30 | NUR ---
SHIFT ASSESSMENT COMPLETE. VSS. PATIENT SITTING IN RECLINER WAITING TO GO FOR A WALK WITH STAFF. MORNING MEDS GIVEN PER ORDERS. FALL PRECAUTIONS IN PLACE AND TELESITTER IN ROOM. CALL LIGHT IN REACH
--- NOTE | 2023-02-14 11:30 | NUR ---
PATIENT VERY RESTLESS AND UPSET ABOUT NOT BEING ABLE TO GET UP AND WALK AROUND THE HOSPITAL BY HERSELF. PATIENT STATED TO AID THAT SHE IS TIRED OF BEING HERE AND WANTS TO GO HOME TO HER CAT AND SEE HER FAMILY. NURSE AND AID TIRED TO COMFORT PATIENT AND TAKE HER FOR A WALK, BUT PATIENT IS STILL UPSET. LIAM CAME BY AND OFFERED TO SIT WITH PATIENT AND TAKE HER DOWN TO THE CHAPLE. NURSE AGREED THAT WOULD HELP PATIENT FEEL BETTER.
--- NOTE | 2023-02-14 12:03 | NUR ---
Data: Estimating Manager visit attempted during Estimating Manager rounds. Assessment: Patient was sleeping. Plan of Care: Chaplains will remain available as needed/desired by Patient while admitted to this hospital.
--- NOTE | 2023-02-14 16:04 | NUR ---
Data: RN was walking the hallways with Patient. RN asked English Adjunct Faculty to walk with Patient so that RN could attend to other Patients. Assessment: Patient has anxiety about being in the hospital; about not seeing her Family as frequently as she would like; and about not being able to see her pet cat "Daniel." Plan of Care: English Adjunct Faculty provided a ministry of presence and supportive listening; walking with Patient; helping her to become comfortable enough to lie in the bed to nap.
[2023-02-14 19:30] VITALS: BP 100/63; PULSE 72; TEMP 98.3
[2023-02-15 08:00] VITALS: BP_SYST 132
[2023-02-15 08:02] VITALS: BP 132/80; PULSE 69; TEMP 98.2
--- NOTE | 2023-02-15 08:04 | NUR ---
THE PATIENT DID NOT SLEEP MOST OF THE NIGHT. THE PATIENT CONTINUED TO SET OFF THE BED AND CHAIR ALARMS FREQUENTLY. THE PATIENT AT TIMES WAS NOT RE-DIRECTABLE AND YET AT OTHER TIMES THE PATIENT WAS PLEASANTLY RE-DIRECTABLE.
--- NOTE | 2023-02-15 11:35 | NUR ---
SHIFT ASSESSMENT COMPLETE. PATIENT UP TO CHAIR WAITING FOR BREAKFAST. PATIENT DID NOT GET MUCH SLEEP LAST NIGHT AND IS HAVING TROUBLE SITTING STILL THIS AM. ALL MORNING MEDS GIVEN PER ORDERS. PATIENT HAS NO REQUEST AT THIS TIME EXCEPT WANTING TO GO HOME TO SEE HER CAT. FALL PRECAUTIONS IN PLACE, CALL LIGHT IN REACH
--- NOTE | 2023-02-15 15:56 | NUR ---
Data: Patient to walk around the hospital. Roustabout Crew Leader available to walk with Patient. Assessment: Patient is sad and anxious because she does not understand why she has been in the hospital for so long. Patient misses her cat and her Family. Plan of Care: Roustabout Crew Leader walked with Patient; engaging in conversation with Patient during the walk. Patient grew tired. Roustabout Crew Leader returned Patient to her room where she eventually fell asleep in her recliner.
[2023-02-15 20:18] VITALS: BP 122/84; PULSE 79; TEMP 98.3
[2023-02-15 20:30] VITALS: BP_SYST 122
--- NOTE | 2023-02-15 20:30 | NUR ---
Initial shift assessment done- sitting in recliner, alert/confused/doesnt follow directions at times,, given a HS snack of some applesauce, will give the Melatonin to see if she can sleep tonight,, she was up to bathroom and did have another small stool.
--- NOTE | 2023-02-16 05:41 | NUR ---
No changes , did get a couple little stretches of sleep- now back sitting up in recliner- given some juice
[2023-02-16 07:57] VITALS: BP 144/83; PULSE 70; TEMP 98.7
[2023-02-16 08:43] VITALS: BP_SYST 144
[2023-02-16 20:30] VITALS: BP_SYST 144
--- NOTE | 2023-02-16 20:30 | NUR ---
Initial shift assessment done- in good spirits- had some company today- still very impulsive with getting up and down from chair to bed- doesnt follow through -gets distracted. has not been sleeping much on nights-- will give the olena mcbride
--- NOTE | 2023-02-17 06:22 | NUR ---
Quiet night-- did sleep for a good 6-7 hours.
[2023-02-17 08:43] VITALS: BP 143/74; PULSE 72; TEMP 98.2
[2023-02-17 09:21] VITALS: BP_SYST 143
--- NOTE | 2023-02-17 15:51 | NUR ---
Assessment completed this morning. Pt a/o x4. Staff has ambulated patient several times in the hallway today. Fall precautions and telesitter in place. Pt not always compliant with staying in bed or chair and attempts to get up on her own, setting off the chair/bed alarm. Denies pain or needs at this time.
--- NOTE | 2023-02-17 16:41 | NUR ---
Abdifatah Temple contacted this psychiatric social worker and confirmed that patient will be private pay in a custodial for taker off care and can garantee payment next week. Abdifatah is now temporary conservatorship and securing all accounts for payment. Diesel Engine Ii Pipe Fitter Aramis Payan plans to see patient this date. Worker gave a referral to [facility] and Abdifatah connected with the [facility] account group supervisor regarding payment information. Will await [place] answer on acceptance.
--- NOTE | 2023-02-17 19:49 | NUR ---
Bedside report received from TALON Rodriguez. Pt is currently sleeping in recliner with no complaints. Telesitter in place. Call light within reach and precautions in place.
[2023-02-17 21:50] VITALS: BP_SYST 143
--- NOTE | 2023-02-18 04:38 | NUR ---
Pt was awake for most of the night this shift. Pt alternated between resting in recliner and bed. Pt was unable to get comfortable to rest through the night. Pt was able to sleep some when resting in bed. Pt has no complaints. Call light within reach, telesitter in place, and fall precautions in place.
[2023-02-18 08:07] VITALS: BP 125/86; PULSE 69; TEMP 97.6
[2023-02-18 09:53] VITALS: BP_SYST 125
[2023-02-18 12:32] VITALS: BP 152/92; PULSE 85; TEMP 97.6
--- NOTE | 2023-02-18 14:38 | NUR ---
Adenike with [facility] met with social welfare administrator and patient. Patient is agreeable to transfer to long term care pharmacist care at [facility]. Abdifatah Temple states that he can admit patient and pay [place].
--- NOTE | 2023-02-18 14:49 | NUR ---
[facility] son, Ra, who is temporary guardian regarding patient's accept and transfer to [facility] for intermediate school teacher care. Ra states he is agreeable to transfer to the [facility] and will assist with admission paperwork. Discharge plan: detention care at [facility].
--- NOTE | 2023-02-18 17:07 | NUR ---
Assessment completed this am. Pt a/o x4, pleasant and cooperative. Fall precautions d/c'd. Pt has steady gait. Denies pain or needs.
--- NOTE | 2023-02-18 19:35 | NUR ---
Bedside report received from TALON Rodriguez. Pt is in room resting at this time. Telesitter in place. Call light within reach.
[2023-02-18 20:15] VITALS: BP 133/67; PULSE 86; TEMP 98.1
[2023-02-18 21:00] VITALS: BP_SYST 133
[2023-02-19 08:10] VITALS: BP 154/94; PULSE 72; TEMP 97.5
--- NOTE | 2023-02-19 08:40 | NUR ---
Assessment complete. Pt a/o x4 and pleasant and cooperative. Denies pain or needs. Telesitter in place.
[2023-02-19 09:59] VITALS: BP_SYST 154
--- NOTE | 2023-02-19 10:55 | NUR ---
[facility] with [facility] accepts patient to group home care today. Adenike requests outpatient speech therapy be ordered for cognition assessments and treatments.
[2023-02-19] MEDS ORDERED: DESYREL 50MG50 MG PO (11:02)
--- NOTE | 2023-02-19 12:20 | NUR ---
Patient discharged with [facility] with [facility] staff. NO IV access. Family with patient. Report called.
--- NOTE | 2023-02-19 16:32 | NUR ---
Supervisory Investigative Specialist faxed discharge orders to Sudhir at [facility]. Transport time set for 1145. GASTON completed CARE Assessment with patient then uploaded it to [facility]. GASTON met with Ra to obtain signatures on CARE. GASTON also reviewed IM with Ra who verbalized understanding and provided signature. GASTON provided transport time to [place]. Discharge Plan: [facility]
== END 2023-02-19 12:20 | DRG 292 ==
LOC: COL.ER 02:58 → MEDICAL 07:58
PROVIDERS: Emergency Medicine; Physician Assistant; ADMIT Internal Medicine
DX: I50.9 Heart failure, unspecified (principal); E46 Unspecified protein-calorie malnutrition; G72.81 Critical illness myopathy; E03.9 Hypothyroidism, unspecified; F03.90 Unspecified dementia, unspecified severity, without behavioral disturbance, psychotic disturbance, mood disturbance, and anxiety
CPT/HCPCS: J1630; J1650; J1940